=== PATIENT | female | born 1955 | race Hispanic/Latino ===

== ENCOUNTER 2024-08-12 12:01 | Emergency (ER) | payer OTHER ==
[~2024-08-12] VITALS: Ht 162.6 cm; Wt 54.4 kg
[2024-08-12 12:37] LABS: BASOPHILS # (AUTO) 0.03 K/uL (0.00-0.20); BASOPHILS % (AUTO) 0.4 % (0.0-5.0); EOSINOPHILS # (AUTO) 0.25 K/uL (0.00-0.70); EOSINOPHILS % (AUTO) 3.5 % (0.0-8.0); HEMATOCRIT 34.2 % (36-48); IMMATURE GRANULOCYTE ABSOLUTE 0.02 K/uL (0-1); LYMPHOCYTES # (AUTO) 1.7 K/uL (1.0-4.8); LYMPHOCYTES % (AUTO) 23.6 % (21.0-51.0); MEAN CORPUSCULAR HEMOGLOBIN 30.5 pg (27.0-33.0); MEAN CORPUSCULAR HGB CONC 33.6 g/dL (32.0-36.0); MEAN CORPUSCULAR VOLUME 90.7 fL (79-99); MONOCYTES # (AUTO) 0.5 K/uL (0.1-1.0); MONOCYTES % (AUTO) 6.6 % (3.0-13.0); NEUTROPHILS # (AUTO) 4.6 K/uL (1.8-7.7); NEUTROPHILS % (AUTO) 65.6 % (40.0-77.0); PLATELET COUNT (AUTO) 217 K/uL (130-400); RED BLOOD CELL COUNT(AUTO) 3.77 MIL/uL (4.00-5.50); RED CELL DISTRIBUTION WIDTH 13.4 % (11.0-15.5); WHITE BLOOD COUNT (AUTO) 7.1 K/uL (4.8-10.8)
[2024-08-12] MEDS: LACTATED RINGERS 1000ML 1,000 ML IV ONE (12:40)
[2024-08-12 12:52] LABS: CREATININE 0.7 mg/dL (0.5-1.0); POTASSIUM 3.7 mmol/L (3.5-5.1)
[2024-08-12 13:00] LABS: MAGNESIUM 1.7 mg/dL (1.80-2.40)
[2024-08-12 13:03] LABS: B-TYPE NATRIURETIC PEPTIDE 187 pg/mL (0-100)
--- NOTE | 2024-08-12 14:23 | EKG ---
[facility] Test Date: 2024-08-12 Test Time: 12:47:57 Pat Name: NKECHI CHAHAL Department: [facility] Room: Gender: F District Branch Manager: [id number] : 1955 Requested By: CARLIN SON Order Number: [id number] Reading MD: Keren Garcia Measurements Intervals [place] Rate: 58 P: 37 MA: 136 QRS: -21 QRSD: 85 T: 13 QT: 407 QTc: 389 Interpretive Statements Sinus rhythm Atrial premature complex No previous ECG available for comparison Electronically Signed On 08-13-2024 13:21:27 CDT by Keren Garcia Please click the below link to view image of tracing.
[2024-08-12 14:38] LABS: APPEARANCE,URINE CLEAR (CLEAR); BILIRUBIN,URINE NEGATIVE (NEGATIVE); COLOR,URINE COLORLESS (YELLOW); GLUCOSE, URINE (UA) NEGATIVE (NEGATIVE); KETONES,URINE NEGATIVE (NEGATIVE); LEUKOCYTE ESTERASE ,URINE 25 Leu/uL (NEGATIVE); NITRATE,URINE NEGATIVE (NEGATIVE); OCCULT BLOOD,URINE NEGATIVE (NEGATIVE); PROTEIN,URINE NEGATIVE (NEGATIVE); UROBILINOGEN,URINE 0.2 mg/dL (0.2-1.0)
[2024-08-12 14:41] LABS: ADD UA MICROSCOPIC YES
[2024-08-12 15:20] LABS: BACTERIA,URINE RARE /HPF (None Seen); RBC,URINE 0-1 /HPF (0-1); SQUAMOUS EPITHELIAL CELL,UR RARE /HPF (0-2); WBC,URINE 0-1 /HPF (0-1)
--- NOTE | 2024-08-12 15:34 | ERN ---
General Chief Complaint: Dizzy/Light Headed Stated Complaint: HYPOTENSION Time Seen by MD: 12:04 History of Present Illness Initial Comments 69-year-old female who presents for hypotension and near-syncope. Patient was at her orthopedic office and felt dizzy. She had a near syncopal episode without actually falling. She had her blood pressure checked and it was 60/40. EMS found her blood pressure to be improved. They gave her fluids. Patient denies any chest pains, palpitations, recent illness, or any other concerning symptom. She was there for a follow up appointment due to a right rotator cuff procedure. Allergies: Coded Allergies: ibuprofen (Unverified Allergy, Unknown, 08/12/24) Past Medical History Past Medical History: No Pertinent History Past Surgical History: None, ROS Dictation CONSTITUTIONAL: No chills, no fever, no weakness, no diaphoresis, no malaise. HEAD/FACE: No signs of trauma. EENT: No eye pain, no blurred vision, no tearing, no double vision, no ear pain, no ear discharge, no nose pain, no nasal congestion, no throat pain, no throat swelling, no mouth pain. RESPIRATORY: No cough, no orthopnea, no SOB, no stridor, no wheezing. CARDIOVASCULAR: No chest pain, no edema, no palpitations, syncope GASTROINTESTINAL/ABDOMINAL: No abdominal pain, no constipation, no diarrhea, no nausea, no vomiting. GENITOURINARY: No abnormal discharge, no dysuria, no frequent urination, no hematuria. No complaints of pain in the genitals. MUSCULOSKELETAL: No back pain, no gout, no joint pain, no joint swelling, no muscle pain, no muscle stiffness, no neck pain. INTEGUMENTARY: No change in color, no change in hair/nails, no dryness, no lesion, no lumps, no rash. NEUROLOGICAL/PSYCH: No anxiety, not depressed, no emotional problem, no headache, no numbness, no pre-existing deficit, no history of seizures, no tremors, no weakness. HEMATOLOGIC/LYMPHATIC: Not anemic, no history of blood clots, no apparent bleeding, no bruising, glands not swollen. All Systems Negative, Except as Noted. Physical Exam Physical Exam Dictation VITAL SIGNS: Reviewed. GENERAL APPEARANCE: Alert, oriented x3, no acute distress HEAD AND FACE: Non-traumatic. EYES: PERRL, pink conjunctivas, eyelid no trauma, anterior chamber clear. EARS: Pinnas intact and no signs of trauma or erythema. Ear canals clear and no discharge. TMs no erythema. NOSE: No discharge, no bleeding. OROPHARYNX: Mouth normal, teeth no caries, tongue pink. Pharynx clear, no erythema. Tonsils no exudates, no abscesses noted. Mucous membrane moist. NECK: Supple, non-tender, no thyromegaly, no masses, no JVD, no bruits. BREAST: Deferred. CHEST: No tenderness, no crepitus, no paradoxical movement, no retractions. LUNGS: Clear, well-ventilated, symmetric, no rales, no wheezing, no rhonchi, no stridor, good breath sounds bilaterally. HEART: Regular rate, regular rhythm, no murmur, no gallops. VASCULAR: No peripheral edema. ABDOMEN: Soft, positive bowel sounds, nondistended, no guarding, nontender, no rebound, no masses no hepatomegaly, no splenomegaly, no Wahl's sign, no hernias. RECTAL: Deferred. GENITAL: Deferred. NEUROLOGICAL: Normal speech, gross motor function intact, gross sensory function intact. MUSCULOSKELETAL: Neck nontender, full range of motion, back nontender, full r reuben of motion. EXTREMITIES: Nontender, full range of motion. SKIN: Color pink, dry, no turgor, no rash, no lacerations, no abrasions, no contusions. LYMPHATICS: Deferred. Results Laboratory and Microbiology Lab and Micro Result Laboratory Tests Test 08/12/24 12:28 08/12/24 14:20 White Blood Count 7.1 K/uL (4.8-10.8) Red Blood Count 3.77 MIL/uL (4.00-5.50) L Hemoglobin 11.5 g/dL (12.0-16.0) L Hematocrit 34.2 % (36-48) L Mean Corpuscular Volume 90.7 fL (79-99) Mean Corpuscular Hemoglobin 30.5 pg (27.0-33.0) Mean Corpuscular Hemoglobin Concent 33.6 g/dL (32.0-36.0) Red Cell Distribution Width 13.4 % (11.0-15.5) Platelet Count 217 K/uL (130-400) Mean Platelet Volume 9.9 fL (7.5-10.5) Immature Granulocyte % (Auto) 0.3 % (0-1) Neutrophils (%) (Auto) 65.6 % (40.0-77.0) Lymphocytes (%) (Auto) 23.6 % (21.0-51.0) Monocytes (%) (Auto) 6.6 % (3.0-13.0) Eosinophils (%) (Auto) 3.5 % (0.0-8.0) Basophils (%) (Auto) 0.4 % (0.0-5.0) Neutrophils # (Auto) 4.6 K/uL (1.8-7.7) Lymphocytes # (Auto) 1.7 K/uL (1.0-4.8) Monocytes # (Auto) 0.5 K/uL (0.1-1.0) Eosinophils # (Auto) 0.25 K/uL (0.00-0.70) Basophils # (Auto) 0.03 K/uL (0.00-0.20) Absolute Immature Granulocyte (auto 0.02 K/uL (0-1) Nucleated Red Blood Cells 0.0 % (0.0-0.19) D-Dimer Quantitative (PE/DVT) 505 ng/mL (0-500) *H Sodium Level 139 mmol/L (136-145) Potassium Level 3.7 mmol/L (3.5-5.1) Chloride Level 102 mmol/L (101-111) Carbon Dioxide Level 30 mmol/L (21-32) Blood Urea Nitrogen 12 mg/dL (7-18) Creatinine 0.7 mg/dL (0.5-1.0) Glomerular Filtration Rate Calc 94 mL/min (>90) Random Glucose 114 mg/dL (70-105) H Total Calcium 8.4 mg/dL (8.5-10.1) L Magnesium Level 1.70 mg/dL (1.80-2.40) L Total Creatine Kinase 91 U/L (21-232) Troponin I High Sensitivity 5.8 ng/L (4-50) B-Type Natriuretic Peptide 187 pg/mL (0-100) H Urine Color COLORLESS (YELLOW) Urine Appearance CLEAR (CLEAR) Urine pH 7.0 (5.0-8.0) Urine Specific [place] 1.003 (1.001-1.031) Urine Protein NEGATIVE mg/dL (NEGATIVE) Urine Glucose (UA) NEGATIVE mg/dL (NEGATIVE) Urine Ketones NEGATIVE mg/dL (NEGATIVE) Urine Occult Blood NEGATIVE (NEGATIVE) Urine Nitrate NEGATIVE (NEGATIVE) Urine Bilirubin NEGATIVE mg/dL (NEGATIVE) Urine Urobilinogen 0.2 mg/dL (0.2-1.0) Urine Leukocyte Esterase 25 Jamal/uL (NEGATIVE) H Urine RBC 0-1 /HPF (0-1) Urine WBC 0-1 /HPF (0-1) Urine Squamous Epithelial Cells RARE /HPF (0-2) Urine Bacteria RARE /HPF (None Seen) MDM CC: Syncopal episode while at doctor's office Historian: Patient Comorbidities: Differential diagnosis: Cardiac syncope, arrhythmia, vasovagal syncope, other Limitations by social determinants of health: None Initial exam is unremarkable. Cranial nerves are intact. GCS of 15. Nontoxic in appearance. She does have a sling on her right shoulder. EKG: Sinus rhythm rate of 58 with a normal axis, good R-wave progression, intervals are stable no STEMI. Vital signs are stable, remained stable here in the ER. Labs (independently ordered and interpreted by me): No leukocytosis, normocytic anemia hemoglobin 11.5. Chemistry panel is unremarkable, CK, troponin, BNP are stable. Urinalysis unremarkable. Twenty-five leuk esterase unlikely the be related to the patient's symptoms. D-dimer 505, one age corrected unlikely to be a PE Patient received IV fluids 1 L lactated ringer in the ER. Patient had a syncopal episode. Vital signs have been stable here in the e mergency department. She received fluids. Very low suspicion for any sepsis, cardiac cause, arrhythmia, or other life-threatening pathology of the syncopal episode. I offered the patient admission for further evaluation and workup for the syncopal episode, but she reports that she feels much better, she is GCS 15, she has stable vital signs, she prefers to go home at this time she will follow up with the primary doctor. ED Course Orders Procedure Category Date Status Time Cardiac Panel LAB 08/12/24 Complete 12:13 Cbc With Differential LAB 08/12/24 Complete 12:13 Basic Metabolic Panel LAB 08/12/24 Complete 12:13 B-Type Natriuretic LAB 08/12/24 Complete Peptide 12:13 Magnesium LAB 08/12/24 Complete 12:13 Urinalysis Profile LAB 08/12/24 Complete 12:13 12 Lead Ekg Tracing- EKG 08/12/24 Complete Technical 12:13 D-Dimer LAB 08/12/24 Complete 12:13 Lactated Ringers PHA 08/12/24 Complete 1000ml (Lactated 12:30 Current Medications Medications (Trade) Dose Ordered Sig/Dale Route PRN Reason Start Time Stop Time Status Last Admin Dose Admin Lactated Ringer's 1,000 ml @ 0 mls/hr ONCE ONCE IV 08/12/24 12:30 08/12/24 12:31 DC 08/12/24 12:40 Vital Signs Date Time Temp Pulse Resp B/P (MAP) Pulse Ox O2 Delivery O2 Flow Rate FiO2 08/12/24 15:54 98.2 72 18 113/62 99 Room Air* 0 21 08/12/24 15:16 98.2 78 18 136/68 99 Room Air* 0 21 08/12/24 13:48 78 18 140/73 98 Room Air* 0 21 08/12/24 12:06 98.2 62 16 105/60 99 Room Air 0 DX & DISP Disposition: Discharge Departure Impression: Primary Impression: Episode of syncope Condition: Stable Additional Instructions: You had a near syncopal episode here today. As we discussed, there are many causes of syncope. There was not a clear reason why you had this episode today based on your workup. Your vital signs has been stable here in the ER. Your EKG is normal. Your lab work (CBC with differential, metabolic panel, CK, troponin, BNP, urinalysis, D-dimer) is unremarkable. As we discussed, I recommend that you follow up with the primary doctor regarding your weakness and episode. Please return to the emergency department immediately if you have any concerns. Referrals: SELF,REFERRAL (PCP) CARLIN SON DO Aug 12, 2024 15:34
[2024-08-12 15:54] VITALS: BP 113/62; PULSE 72; RESP 18; TEMP 98.2; O2SAT 99
== END 2024-08-12 15:56 | disposition home or self-care (01) ==
LOC: EDH 12:01
DX: R55 Syncope and collapse (principal); Z88.6 Allergy status to analgesic agent
CPT/HCPCS: 99284; 96360; 82550; 83735; 84484; 80048; 83880; 85025; 85378; 81001; 36415; 93005; J7120